=== PATIENT | female | born 1955 | race Caucasian/White ===

== ENCOUNTER → 2017-01-13 | Outpatient (CLI) | payer BC ==
[2017-01-13 13:25] LABS: URINE APPEARANCE CLEAR (CLEAR); URINE BILIRUBIN NEG (NEG); URINE COLOR YELLOW; URINE NITRITE NEG (NEG); URINE SPECIFIC GRAVITY 1.006 (1.000-1.030); UROBILINOGEN NEG (NEG)
[2017-01-13 13:28] LABS: BASO % 1.1 %; BASO ABS # 0.06 K/uL (0-0.2); COMPLETE YES; EOS % 1.6 %; IG% 0.2 %; LYMPH % 35.3 %; LYMPH ABS # 1.95 K/uL (1.2-3.4); MEAN CELL VOLUME 94.5 fL (80-100); MEAN CORPUSCULAR HEMOGLOBIN 31.9 pg (25-34); MEAN CORPUSCULAR HGB CONC 33.8 g/dl (32-36); MEAN PLATELET VOLUME 9.8 fL (7.4-10.4); MONO % 10.7 %; NEUT % 51.1 %; PLATELET COUNT 307 K/uL (130-400); RED BLOOD COUNT 4.76 M/uL (4.2-5.4); WHITE BLOOD COUNT 5.53 K/uL (4.8-10.8)
[2017-01-13 13:34] LABS: MANUAL MICROSCOPIC REQUIRED? NO; REVIEW REQ? NO
[2017-01-13 13:54] LABS: ESTIMATED AVERAGE GLUCOSE 97 mg/dl; HA1C FLAG Normal (Normal)
[2017-01-13 14:23] LABS: ALKALINE PHOSPHATASE 71 U/L (45-117); ALT/SGPT 22 U/L (12-78); AST/SGOT 16 U/L (15-37); BLOOD UREA NITROGEN 14 mg/dl (7-18); BUN/CREATININE RATIO 17.5 (10-20); CALCIUM 8.9 mg/dl (8.5-10.1); CARBON DIOXIDE 25 mmol/L (21-32); CHLORIDE 106 mmol/L (98-107); CREATININE 0.82 mg/dl (0.60-1.20); GLUCOSE 85 mg/dl (70-99); HDL CHOLESTEROL 83 mg/dl; POTASSIUM 4.3 mmol/L (3.5-5.1); SODIUM 140 mmol/L (136-145)
[2017-01-13 14:24] LABS: CHOLESTEROL 214 mg/dl (0-200); CHOLESTEROL/HDL RATIO 2.6; LDL CHOLESTEROL CALCULATED 116 mg/dl; MAGNESIUM 2.1 mg/dl (1.8-2.4); PHOSPHORUS 2.4 mg/dl (2.5-4.9); TRIGLYCERIDES 74 mg/dl (0-150); VERY LOW DENSITY LIPOPROT CALC 15 mg/dl
--- NOTE | 2017-01-19 09:44 | CODING QUERY MEDICAL NECESSITY ---
SUPPORTING DIAGNOSIS NEEDED Dr. Mercado, A supporting diagnosis is required for the test/procedure performed on this patient in order for us to be reimbursed by the patient's insurance. Please provide a supporting diagnosis for the following test/procedure listed below next to the test name along with your signature. *If there is no additional diagnosis for this patient that would support the following test/procedure please document that below next to the test/procedure. Test(s)/Procedure(s) that require a supporting diagnosis: * 27782 GLYCATED HEMOGLOBIN DIAGNOSIS: DATE OF SERVICE: 01/13/17 Provider Signature: Date: Thank you [facility] Information Management Once completed, please kindly fax back to [phone] For questions please call [phone]
== END | disposition home or self-care (01) ==
LOC: C.LABMFLN 12:23
DX: E78.00 Pure hypercholesterolemia, unspecified (principal); K21.9 Gastro-esophageal reflux disease without esophagitis; Z85.3 Personal history of malignant neoplasm of breast; R63.4 Abnormal weight loss; Z13.1 Encounter for screening for diabetes mellitus

== ENCOUNTER → 2017-11-30 | Outpatient (CLI) | payer BC ==
[2017-11-30 13:11] LABS: BASO ABS # 0.06 K/uL (0-0.2); EOS ABS # 0.12 K/uL (0-0.5); HEMOGLOBIN 14.4 g/dL (12.0-16.0); IG# 0.01 K/uL (0.00-0.02); LYMPH % 31.4 %; LYMPH ABS # 1.85 K/uL (1.2-3.4); MEAN CELL VOLUME 95.1 fL (80-100); MEAN CORPUSCULAR HEMOGLOBIN 31.9 pg (25-34); MEAN CORPUSCULAR HGB CONC 33.5 g/dl (32-36); MONO % 13.1 %; MONO ABS # 0.77 K/uL (0.11-0.59); NEUT % 52.3 %; NEUT ABS # 3.09 K/uL (1.4-6.5); PLATELET COUNT 325 K/uL (130-400); RED CELL DISTRIBUTION WIDTH CV 13.6 % (11.5-14.5); RED CELL DISTRIBUTION WIDTH SD 47.1 fL (36.4-46.3)
[2017-11-30 13:45] LABS: ALBUMIN 3.4 gm/dl (3.4-5.0); ALT/SGPT 25 U/L (12-78); AST/SGOT 21 U/L (15-37); BLOOD UREA NITROGEN 16 mg/dl (7-18); CALCIUM 8.8 mg/dl (8.5-10.1); CARBON DIOXIDE 24 mmol/L (21-32); CHOLESTEROL 231 mg/dl (0-200); CREATININE 0.81 mg/dl (0.60-1.20); GLUCOSE 93 mg/dl (70-99); POTASSIUM 4.2 mmol/L (3.5-5.1); SODIUM 136 mmol/L (136-145)
[2017-11-30 13:53] LABS: ALKALINE PHOSPHATASE 66 U/L (45-117); LDL CHOLESTEROL CALCULATED 137 mg/dl; TOTAL PROTEIN 6.9 gm/dl (6.4-8.2)
== END | disposition home or self-care (01) ==
LOC: C.LABMFLN 08:18
DX: Z85.3 Personal history of malignant neoplasm of breast (principal); K21.9 Gastro-esophageal reflux disease without esophagitis

== ENCOUNTER 2021-09-16 08:28 | Observation (INO) ==
--- NOTE | 2021-09-08 13:54 | PAT Medication Instructions ---
Medication Instructions Date of Service September 08, 2021 Home Medications Medication Instructions Recorded cyclobenzaprine 10 mg tablet 10 mg PO HS PRN #30 tab 05/05/19 Right BKA prosthetic supplies plus #1 ea 01/10/20 socks and liners esomeprazole magnesium 40 mg 40 mg PO DAILY #90 cap 11/25/20 capsule,delayed release cyclobenzaprine 10 mg tablet 10 mg PO HS PRN Right BKA prosthetic supplies plus socks and liners esomeprazole magnesium 40 mg capsule,delayed release 40 mg PO DAILY aspirin 500 mg tablet 1,000 mg PO Q8H PRN Take morning of surgery With a small sip of water, OTHERWISE NOTHING TO EAT OR DRINK AFTER MIDNIGHT: esomeprazole magnesium 40 mg capsule,delayed release 40 mg PO DAILY aspirin 500 mg tablet 1,000 mg PO Q8H PRN(if needed) Take evening before surgery cyclobenzaprine 10 mg tablet 10 mg PO HS PRN(if needed) aspirin 500 mg tablet 1,000 mg PO Q8H PRN(if needed) Other Notes If you have any questions please call us at [phone] or [phone] or [phone] or [phone]
--- NOTE | 2021-09-09 11:46 | Anesthesiology Consultation ---
Date of Service September 09, 2021 Assessment & Plan (1) Encounter for pre-operative examination: - H/o left upper extremity limb restriction per pt-she states has had multiple IVs, lab draws on LUE without issue, was necessary with previous R shoulder surgery. - COVID screening: Per assessment on 09/09/2021: Travel screen negative, no known COVID-19 positive contacts or current COVID-19 related symptoms in past 2 weeks. Patient vaccinated. Surgeon arranging preop COVID testing, scheduled 09/14/2021 FELICITAS Cronin. Awaiting results. Chart Review Chart Review: Acceptable Risk for Surgery and Patient seen in Pre Admission Test ing Teaching & Discussion Pre-Anesthesia Teaching/Discussion Notes: Instructed NPO after midnight before surgery, except medications with 15 cc of water. Medication instructions provided according to the PAT guidelines. History Surgery Operation Date: 09/16/21 07:15 Proposed Procedures p Right Humerus Hardware Removal and Reverse Total Shoulder Arthroplasty - Uday Hugo MD Height/Weight Height: 5 ft 4 in Weight: 82.8 kg Allergies Allergy/AdvReac Type Severity Reaction Status Date / Time No Known Drug Allergies Allergy Verified 09/07/21 15:10 Medications Home Medications Medication Instructions Recorded Confirmed Last Taken cyclobenzaprine 10 mg tablet 10 mg PO HS PRN #30 tab 05/05/19 09/07/21 Unknown Right BKA prosthetic supplies plus #1 ea 01/10/20 11/25/20 Unknown socks and liners esomeprazole magnesium 40 mg 40 mg PO DAILY #90 cap 11/25/20 09/07/21 Unknown capsule,delayed release aspirin 500 mg tablet 1,000 mg PO Q8H PRN 09/07/21 09/07/21 Unknown Past Medical History Medical History (Updated 09/10/21 @ 08:31 by Misa Martin PA-C) Acid reflux controlled, stable per pt Adenomatous colon polyp Arthritis 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 Exercise / Class Metabolic Activity II 4-5 Yardwork/Stairs/Walk up hill (denies CP or SOB with 1 FOS) Past Family History Family History Mother Pancreatic cancer Anxiety Depression Cardiac disorder Gallbladder disease Sister Anxiety Bipolar disorder Depression Cardiac disorder Father Prostate cancer Cardiac disorder Kidney disease Cancer Son Cancer Brother Malignant neoplasm of testis Cancer Grandfather Myocardial infarction Uncle Myocardial infarction Grandfather (Maternal) Family history of diabetes mellitus Other No family history of adverse response to anesthesia Past Surgical History Surgical History (Updated 09/09/21 @ 11:41 by Misa Martin PA-C) Gastric bypass status for obesity > 20 yrs ago H/O section X 2 H/O colonoscopy 03/19/2018 repeat 5 yrs H/O sinus surgery X 2 H/O splenectomy History of cholecystectomy History of esophagogastroduodenoscopy (EGD) History of open reduction and internal fixation (ORIF) procedure RT SHOULDER History of tonsillectomy and adenoidectomy History of tooth extraction Nausea and vomiting after administration of anesthetic agent S/P BKA (below knee amputation) S/P ACCIDENT S/P breast lumpectomy LEFT and lymph node excision Past Anesthesia History No Hx of Anesthesia Complications and No Family Hx of Anesthesia Complications History of PONV No Hx of Motion Sickness and History of PONV Social History Smoking Status: Former smoker tobacco type: cigarettes Do You Dip or Chew Tobacco: No Smoking End Date: 40 YEARS AGO Hx Alcohol Use: Yes Alcohol type: wine alcohol intake frequency: a few times a month Hx Substance Use: No Review of Systems Patient denies chest pain, shortness of breath, dyspnea on exertion, snoring, witnessed apneas, fever, chills, cough, wheezing, or palpitations. Physical Exam Vital Signs Vitals BP 120/77 P 53 TEMP 97.8 SP02 96% on RA RESP 17 Physical Full cervical extension range of motion without pain Full TMJ range of motion TMD 3.5 finger breaths Mallampati Score 2 Dentition: intact, missing bilat upper side teeth, cap left front upper, implant right lower side; denies loose or chipped teeth or bridges Lungs: normal respiratory effort. Clear throughout to auscultation, no adventitious breath sounds Cardiac: regular rate and rhythm, no murmurs noted Carotid arteries: negative bruit bilat Extremities: no distal extremity edema Lab Results Anesthesia Preop Results Results Anesthesia Widget: WBC 6.46 K/uL (4.8-10.8) 09/09/21 Hgb 15.1 g/dL (12.0-16.0) 09/09/21 Hct 46.3 % (37-47) 09/09/21 Plt 328 K/uL (130-400) 09/09/21 Na 137 mmol/L (136-145) 09/09/21 K 4.7 mmol/L (3.5-5.1) 09/09/21 Cl 104 mmol/L (98-107) 09/09/21 CO2 28 mmol/L (21-32) 09/09/21 BUN 17 mg/dl (6-23) 09/09/21 Creat 0.86 mg/dl (0.6-1.2) 09/09/21 Glucose Level 107 mg/dl (70-99) H 09/09/21 PT 10.2 Seconds (9.0-12.0) 09/09/21 PTT 26.1 Seconds (21.0-31.0) 09/09/21 INR 1.0 (0.9-1.1) 09/09/21 Blood Type B Positive 09/09/21 Antibody Screen NEGATIVE 09/09/21 Testing Electrocardiogram Date: 09/09/21 Sinus bradycardia, rate 55 bpm. Low voltage QRS. Other Testing Chest CT 08/11/2021 FINDINGS: Lungs and pleura: Scarring is seen in the left upper lobe. Multiple pulmonary nodules are unchanged from prior exam, largest includin mm nodule in the right upper lobe (series 4 image 91) 5 mm pleural-based nodule in the right lower lobe (image 138) 5 mm nodule in the right lower lobe (image 155) 6 mm pleural-based nodule in the left lower lobe (image 187) 10 mm pleural-based nodule in the right lower lobe (image 190) Heart and pericardium: Cardiomegaly is seen with biatrial enlargement. Vessels: Moderate atherosclerotic changes in the aorta and coronary arteries. Mediastinum and anette: Unremarkable. Chest wall and lower neck: Axillary clips are seen on the left. Subcentimeter nodes are seen in the right axilla. Abdomen: Patient is status post gastric surgery. A hiatal hernia is seen. A status post cholecystectomy. Surgical clips are seen about the spleen. Bones: Unremarkable. IMPRESSION: Interval stability of multiple pulmonary nodules as seen on prior CT. The largest measures 1.0 cm. According to Fleischner criteria, 3 month follow-up CT can be performed.
[~2021-09-16 08:28] MED LIST: ACETAMINOPHEN 500 MG TAB PO SCH; BUPIVACAINE 0.5 % 5 MG/1 ML PF 10ML VIAL ONE; LR 15ML/HR IV SCH; LR 60ML/HR IV SCH; dexAMETHasone 4 MG TAB PO SCH
[2021-09-16] MEDS ORDERED: MIDAZOLAM HCL 1 MG/ML 2ML VIAL ONE (09:20)
[2021-09-16] MEDS ORDERED: fentaNYL citrate 100 MCG/2 ML VIAL ONE ×2 (09:20→13:08)
[2021-09-16] MEDS ORDERED: ONDANSETRON INJ 2 MG/ML 2 ML VIAL IV PRN ×2 (09:37→15:27)
[2021-09-16] MEDS ORDERED: ePHEDrine sulfate 50 MG/ML AMP IV PRN (09:37)
[2021-09-16] MEDS ORDERED: ATROPINE SULFATE 0.1 MG/ML 10ML SYR IV PRN (09:37)
[2021-09-16] MEDS ORDERED: fentaNYL citrate 100 MCG/2 ML VIAL IV PRN (09:37)
[2021-09-16] MEDS ORDERED: ceFAZolin 2,000 MG/15 ML IV PUSH IV ONE (09:56)
[2021-09-16] MEDS ORDERED: ceFAZolin 2000MG 2,000 MG/15 ML SYR IV ONE (09:58)
--- NOTE | 2021-09-16 09:59 | History & Physical Bridge Note ---
Date of Service September 16, 2021 History & Physical Bridge Note I have examined the patient, reviewed the History & Physical and in the interval since the performance of the History & Physical I have noted the following changes of clinical significance: no changes noted. Patient is aware of COVID-19 risks. Patient is asymptomatic for COVID-19. Patient has been tested for COVID-19 - [NEGATIVE].
[2021-09-16] MEDS ORDERED: GLYCOPYRROLATE 0.2 MG/ML VIAL ONE (11:07)
[2021-09-16] MEDS ORDERED: DEXAMETHASONE SOD INJ 4 MG/ML VIAL ONE (11:28)
[2021-09-16] MEDS ORDERED: LIDOCAINE 2% 2 ML VIAL/AMP(20MG/ML) INFIL ONE (11:28)
[2021-09-16] MEDS ORDERED: PROPOFOL IV EMULSION 10 MG/ML 20 ML VIAL IV ONE (11:28)
[2021-09-16] MEDS ORDERED: ONDANSETRON INJ 2 MG/ML 2 ML VIAL ONE (11:28)
--- NOTE | 2021-09-16 12:16 | Fluoroscopy Report ---
FL humerus RT 2V CLINICAL HISTORY: RT HUMERUS HW REMOVAL COMPARISON STUDY: CT of the right humerus July 28, 2021. FLUOROSCOPY TIME: 20 seconds. FLUOROSCOPIC IMAGES: 1 FINDINGS: Fluoroscopy was provided during removal of the intramedullary jono within the right humerus. Jono and distal screw are partially imaged on this image. IMPRESSION: Fluoroscopy provided during removal of the surgical hardware within the right humerus. ACT 112: Negative or not required by law. Electronically signed by: Dmitriy Cornejo M.D. 09/16/2021 12:15 PM
--- NOTE | 2021-09-16 14:26 | Post Operative Brief Note ---
PG Immediate Post Op with CF Date of Surgery September 16, 2021 Pre & Post Diagnosis Operation Date: 09/16/21 10:05 Pre-Op Diagnosis: Rotator Cuff Arthropathy of Right Shoulder Post-Op Diagnosis: Rotator Cuff Arthropathy of Right Shoulder I identified the patient and participated in the time-out.: Yes Procedure Operation Date: 09/16/21 10:05 Actual Procedures p Right Humerus Hardware Removal and Reverse Total Shoulder Arthroplasty(Right) - Uday Hugo MD Surgeon Uday Hugo MD Maintenance Director Miguel Angel Caceres PA-C Estimated Blood Loss 100 Findings See Below Specimens Specimen Description: Permanent Specimen A: Right Humeral Head
--- NOTE | 2021-09-16 14:47 | Anesthesiology Progress Note ---
Date of Service September 16, 2021 Anesthesia Post Procedure Vital Signs Vital Signs: Temp Pulse Pulse Resp BP BP Pulse Ox 09/16/21 14:30 36.0 C L 59 L 13 100/63 97 09/16/21 08:59 36.8 C 65 20 139/77 96 Pain Intensity Right Shoulder: Pain Intensity: 3 Transfer of Care Handoff Completed per policy Notes Mental Status: alert / awake / arousable Patient Amnestic to Procedure: Yes Nausea / Vomiting: adequately controlled Pain: adequately controlled Airway Patency, RR, SpO2: stable & adequate BP & HR: stable & adequate Hydration State: stable & adequate Anesthetic Complications: no major complications apparent
--- NOTE | 2021-09-16 14:52 | XRay Report ---
RIGHT SHOULDER 2 VIEWS HISTORY: Post shoulder surgery COMPARISON: Right shoulder 02/02/2007. FINDINGS: Status post reverse right total shoulder arthroplasty. Hardware appears intact. No acute fr acture or dislocation. There is normal, healed fracture deformity within the proximal humerus. IMPRESSION: Status post reverse right total shoulder arthroplasty. No evidence for hardware complication. ACT 112: Negative or not required by law. Electronically signed by: Cosme Welsh M.D. 09/16/2021 2:50 PM
--- NOTE | 2021-09-16 15:11 | Operative Report ---
PG Post Operative Report Pre & Post Diagnosis Operation Date: 09/16/21 10:05 Pre-Op Diagnosis: Rotator Cuff Arthropathy of Right Shoulder Post-Op Diagnosis: Rotator Cuff Arthropathy of Right Shoulder, Biceps tendonitis I identified the patient and participated in the time-out.: Yes Procedure Operation Date: 09/16/21 10:05 Actual Procedures p Right Humerus Hardware Removal, Open Biceps Tenodesis, and Reverse Total Shoulder Arthroplasty(Right) - Uday Hugo MD CPT code modifier 59: The biceps tendon was inflamed and enlarged consistent with biceps tendon pathology. A tenodesis was opted. This was a separate and distinct portion of the procedure. For these reasons, a CPT code modifier 59 will be added to this case. Surgeon Uday Hugo MD [employer] Miguel Angel Caceres PA-C Estimated Blood Loss 100 Findings See Below The proximal humeral locking nail was removed without complication. [employer] comprehensive reverse shoulder arthroplasty was performed: Stem17 mm micro, baseplatemedium augmented superior, glenosphere[36 mm standard], humeral tray [40 mm standard +0 offset], poly [36 mm standard], central screw 6.5 mm x [35] mm, all locking peripheral screws 4.75 x [15]mm, 4.75 x [15]mm, 4.75 x [40] mm, and 4.75 x [35] mm EXAMINATION UNDER ANESTHESIA: Preoperative exam under anesthesia revealed the following: [120] degrees of forward flexion, [60] degrees external rotation at the side, [120] degrees of abduction which released with gentle manipulation to approximately [140], [60] degrees of external rotation and [10] degrees of internal rotation with the arm abducted. Postoperatively, range of motion parameters after implantation of prosthesis revealed a stable prosthesis with range of motion parameters as follows: [130] of forward flexion, [60] of external rotation at the side, [90] of abduction, [90] of external rotation with the arm abducted, [20] of internal rotation with the arm abducted. The patient's safe range of motion included the ability to get to the back of her head. Internal rotation to the belly without significant tension. 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 She presented with rotator cuff-like symptoms. Physical exam and advanced imaging were consistent with rotator cuff arthropathy with retraction and atrophy of the supraspinatus. We discussed treatment options including joint preservation with complicated rotator cuff repair and potential augmentation. Given her age and comorbid lower extremity amputation, she preferred a more reliable surgical intervention. I offered elective reverse total shoulder arthroplasty to address the rotator cuff arthropathy. We discussed the risks and benefits in detail, as outlined in the preoperative note. Informed consent was obtained in clinic. Description of Procedure The patient was identified in the preoperative holding area. The operative extremity was marked. Regional block was administered by Anesthesia. The patient was then brought to the operating room and placed supine. Preliminary time-out procedure was performed. All were in agreement. General endotracheal anesthesia was induced without any issues. The patient was sat up in around 40-45 degrees of inclination in the beachchair position. Exam under anesthesia was performed confirming the above findings. Preoperative antibiotics were administered. Sequential compressive devices were placed on her bilateral lower extremities for DVT prophylaxis. Bony prominences were inspected, well-padded and free of any evidence for peripheral nerve compression. The operative upper extremity was then prepped and draped in a normal standard fashion, with use of the Arthrex Trimano arm positioner. Prior to incision, a second time-out procedure was performed confirming the patient, site, laterality and the procedure. All were in agreement. 1. Right proximal humerus nail removal: Fluoroscopy was brought in to identify the location of the distal interlocking screws. The [employer] rep was present and confirmed these are likely 4.5 screws. Screwdriver was then used to locate the screws and a small incision was made. Blunt dissection was carried out using a hemostat down to bone to protect the nearby neurovascular structures. Screwdriver slid down this tissue sleeve, and fluoroscopy was used to direct the log driver onto the screw head. The more proximal screw was removed first. A similar technique was used for the more distal screw through a separate incision. The sites were then thoroughly irrigated. A deltopectoral incision was utilized. Incision was carried out sharply and with electrocautery through the skin and subcutaneous tissues. The deltopectoral interval was developed. The cephalic vein was taken laterally. Subdeltoid space was developed bluntly. A deltoid brown retractor was placed to retract the deltoid laterally and superiorly. 1 cm of the superior border of the pectoralis major tendon insertion site was released in standard fashion to improve exposure. Clavipectoral fascia was removed with electrocautery. Extensive subacromial bursitis was encountered and this was completely removed with a Bovie. The lateral aspect of the conjoined tendon was then followed to its insertion site on the coracoid. The conjoined tendon was retracted medially. The biceps tendon was identified, enlarged consistent with tendinopathy. It was released from the sheath using a Bovie and followed up into the rotator interval. A tenodesis was performed to the pectoralis major tendon as will be discussed in further detail below. A sharp Hohmann retractor was then placed into the interval and into the joint. Subscapularis tendon was still present and attached on the lesser tuberosity. The articular surface of the humeral head could be appreciated. The subscapularis tendon was then tagged with two #5 Ti-Cron sutures to gain control. The capsule with the subscapularis tendon was then released up the inferior humeral neck as one layer. The humeral head dislocated with successive extension and external rotation. Were able to visualize the rotator cuff insertion there was a large retracted tear of the supraspinatus exposing the footprint. Soft tissues debridement carried out using electrocautery and a rongeur. There was some soft tissue covering of the proximal end of the nail which was easily identified at the appropriate start point. We then exposed the lateral humerus which revealed the blade and proximal interlock screw. The interlock screw was removed easily. The derotation screw at the top the nail was then loosened and removed. The blade was then backed out using its removal device by Zytoprotec. The nail extraction device was then attached proximally and the nail was back slapped out without complication. The canal was then thoroughly irrigated with pulse lavage for 2 L. 1. Right shoulder open reverse total shoulder replacement with augmented glenoid baseplate with patient specific guide: Visualization of the humeral head revealed mild osteoarthritis and wear in the superior quadrant. The supraspinatus was absent and retracted to about the level of the glenoid. The posterior aspect of the infraspinatus remained attached as well as the teres minor. The top of the humeral head was identified. A starting awl was used sound the humeral canal. The bone quality was moderate. We opted to set the retroversion of the humeral cut at around 30 degrees of retroversion her te-moak retroversion. Successive reamers were used to sound the cortex. We started at 6 and quickly advanced to 16 mm until good cortical chatter was experienced. The cutting guide was attached to the 16mm reamer handle. Pins were placed to hold the cutting guide and the stock handler was removed. The humeral head resection was then made in parallel fashion to the guide. Sequential broaching was carried out up to a size 16 as the maximal stem size, which gave us excellent press-fit. The trial stem was left in place. Humerus cover was then placed onto the trial broach. We then proceeded over to glenoid. An anterior glenoid neck retractor was placed. The MGHL and SGHL were released off of the muscular portion of the subscapularis being mindful of palpating and identifying the axillary nerve to make sure it was free of injury during releases. Next, the interval between the IGHL and the muscular portions of the subscapularis was identified. My finger was on the axillary nerve to protect it during releases. The IGHL was then released up to around the 7 o'clock position. A bunny ear style blunt retractor was then placed to retract the humerus posteriorly. A sharp Hohmann retractor was placed at the 12 o'clock position. The glenoid deformity was evaluated with assistance with the bone model. Extraneous capsulolabral tissue was dissected to reveal the bone anatomy. This confirmed our decision to proceed with preoperative virtual planning. The arm was placed around 30 degrees of flexion, 90 degrees of external rotation and 30 degrees of abduction to distract the humerus posteriorly. Labrum was circumferentially removed including the biceps tendon stump with a Bovie. A patient specific guide was used to place an initial guide pin, followed by the more superior pin. The patient specific guide was then removed. The custom reamer guide was placed on the superior pin and the reamer was brought down the central pin. Reaming was conducted based on the guide. Irrigation was used and we confirmed adequate reaming. The base protector was then fastened with a screw to protect the surface from the augment reamer. The augment reamer sufficiently removed the cartilage surface. Copious irrigation was performed to irrigate out the joint. A 25 mm medium au gmented baseplate, with wedge placed superior and a 35 mm threaded screw was then placed. For peripheral locking screws were placed. The final construct appeared to be extremely strong as the entire glenoid and scapula moved together as one unit confirming excellent fixation of the baseplate. Next, a 36 mm inferior offset set at position B trial glenosphere was chosen given our preop plan. On inspection, there appeared to be enough room for more offset, so the trial was set to the position and the position D. Trial had good coverage, so the final implant was selected. The glenosphere was then seated into the baseplate and impacted onto the hernandez taper. A ford was used to test fixation, before resetting with additional malletting. The joint was then copiously irrigated. Humerus was then brought back into view with external rotation, deltoid brown retractor and multiple blunt Homans. A trial tray was then placed that would best accommodate the anatomy. The humerus was then reduced onto the glenoid with the arm in abduction and external rotation. The arm was taken out of the dunaway, taken through a physiologic range of motion. No evidence for impingement. No evidence for kick off. No shuck. Thus, the trials would be a most appropriate for stability. Next, the trial humeral component was removed. The final stem prosthesis was then brought onto the field. Final tray insert as well as the poly components were opened. Using the trial component, the final humeral component with the tray and poly were made on the back table, matching the trial implant. Humeral canal was copiously irrigated. Two 2.0 mm drill holes were then placed in the bicipital groove just lateral to the lesser tuberosity. Two #5 Ti-Con sutures were placed through these holes and clamped aside for later subscapularis repair. The final humeral component was then brought back on to the field and seated firmly into the humerus. Excellent press-fit was achieved. Thus, this comple thang the humeral component implantation. With the final components in place, humeral component was then reduced onto the glenosphere and final postoperative range of motion assessment was performed. Stability confirmed. The subscapularis was then repaired to the humerus using a Artie-Drew configuration. This completed the open reverse total shoulder replacement. 2. Open biceps tenodesis: As dictated above, enlargement of the biceps tendon was noted consistent with tendinopathy. A tenodesis was opted. The tendon was released from the bicipital sheath using a Bovie and then tenodesed to the pectoralis major tendon using a #2 Ethibond suture in [id number] fashion. The tendon was then followed up as proximal as could be visualized and then tenotomized. Remaining stump was removed just proximal to the tenodesis site. This completed the open biceps tenodesis. The wound was copiously irrigated. The deltopectoral incision was closed with continuous #1 Vicryl suture. Deep adipous subcutaneous tissues were closed with 2-0 Vicryl suture in buried interrupted fashion and skin closed with interrupted buried knot 3-0 Monocryl dermal stitches, followed by a running 4-0 Monocryl suture. Closure was reinforced with Steri-Strips. Dressing consisting of Xeroform, plain gauze, ABD and Ioban was placed. The distal lock screw incisions were closed with interrupted buried 3-0 Monocryl suture, back to be Steri-Strips and dressed with Xeroform plain gauze and contained by Ioban. The patient was placed in a standard sling and turned over to the anesthesia team. The patient tolerated procedure well, was extubated in the operating without complication, and transferred to the PACU in stable condition. DISPOSITION: The patient will remain in sling for a total of 6 weeks. Hand, wrist, and elbow range of motion exercises may be initiated. After 6 weeks, the sling will be discontinued. Formal therapy will be initiated starting with gentle passive range of motion and active range of motion. No strengthening will be permitted before 12 weeks. When strengthening is allowed, only gentle strengthening will be allowed. Physician campaign assistant attestation: [Miguel Angel Mehta PA-C was present and scrubbed for the duration of the case. He was essential to prepping/draping, patient positioning, retraction, and assistance with wound closure. I attest to the content of the Intraoperative Record and any orders documented therein. Any exceptions are noted below.
[2021-09-16] MEDS ORDERED: METOCLOPRAMIDE HCL INJ 5 MG/ML 2 ML VIAL IV PRN (15:27)
[2021-09-16] MEDS ORDERED: bisacodyL 10 MG SUPP PR PRN (15:27)
[2021-09-16] MEDS ORDERED: CYCLOBENZAPRINE HCL 10 MG TAB PO PRN (15:27)
[2021-09-16] MEDS ORDERED: NALOXONE HCL 0.4 MG/1 ML VIAL/CARP IV PRN (15:27)
[2021-09-16] MEDS ORDERED: MAGNESIUM HYDROXIDE SUSP 30 ML UDC PO PRN (15:27)
[2021-09-16] MEDS: SODIUM CHLORIDE 0.9% 1000ML 1,000 ML IV SCH (17:06)
[2021-09-16] MEDS: ceFAZolin 2000MG 2,000 MG/15 ML SYR IV SCH (20:03)
[2021-09-16] MEDS: DOCUSATE SODIUM 100 MG CAP PO SCH (20:04)
[2021-09-16] MEDS: SENNA 8.6 MG TAB PO SCH (20:04)
[2021-09-16] MEDS: ACETAMINOPHEN 500 MG TAB PO SCH (22:03)
[2021-09-17] MEDS: ceFAZolin 2000MG 2,000 MG/15 ML SYR IV SCH (02:51)
[2021-09-17] MEDS: ACETAMINOPHEN 500 MG TAB PO SCH ×3 (05:43→21:32)
[2021-09-17 06:58] LABS: Basophils # (auto) 0.01 K/uL (0-0.2); Basophils % (auto) 0.2 %; Hematocrit (blood only) 35.6 % (37-47); Hemoglobin 11.8 g/dL (12.0-16.0); Immature Granulocytes # (auto) 0.01 K/uL (0.00-0.02); Immature Granulocytes % (auto) 0.2 %; Lymphocytes # (auto) 1.54 K/uL (1.2-3.4); Lymphocytes % (auto) 23.8 %; Mean Corpuscular Hemoglobin 31.4 pg (25-34); Mean Corpuscular Hgb Conc 33.1 g/dL (32-36); Mean Corpuscular Volume 94.7 fL (80-100); Mean Platelet Volume 9.5 fL (7.4-10.4); Monocytes # (auto) 1.03 K/uL (0.11-0.59); Monocytes % (auto) 15.9 %; Neutrophils # (auto) 3.88 K/uL (1.4-6.5); Neutrophils % (auto) 59.9 %; Platelet Count 256 K/uL (130-400); RDW Coefficient of Variation 13.2 % (11.5-14.5); RDW Standard Deviation 45.5 fL (36.4-46.3); Red Blood Count 3.76 M/uL (4.2-5.4); White Blood Count 6.47 K/uL (4.8-10.8)
[2021-09-17 07:28] LABS: BUN Creatinine Ratio 16.9 (10-20); Calcium 8.1 mg/dl (8.5-10.1); Est GFR (African American) 101.4 ml/min; Est GFR (Non-African American) 87.5 ml/min; Potassium 4.1 mmol/L (3.5-5.1)
[2021-09-17] MEDS: ASPIRIN 325 MG ECTAB PO SCH (07:56)
[2021-09-17] MEDS: MULTIVITAMIN TAB PO SCH (07:56)
--- NOTE | 2021-09-17 13:00 | Orthopedic Progress Note ---
Date of Service September 17, 2021 Assessment & Plan (1) Rotator cuff arthropathy of right shoulder: (2) S/P shoulder surgery: 66-year-old female making uncomplicated progress on postop day 1 after right shoulder hardware removal and reverse total shoulder arthroplasty for rotator cuff arthropathy. Remains inpatient due to ambulatory dysfunction given that she is a right lower extremity amputee and her right arm is nonweightbearing and should be rested in the sling. -Monitor pain as the block effects wear off -PT/OT consults for mobilization and assessment of needs for ADLs: Nonweightbearing RUE, gentle passive glenohumeral motion okay with no external rotation past neutral. No restrictions to hand/wrist, elbow range of motion. -Appreciate case management assistance or next level of care -Leave dressing in place until postop day 3 Dispo: Upon completion of PT/OT evaluations for discharge needs. Subjective Reports no significant pain because the block is still working. Nursing was in the room at the time of evaluation, and they both reported that she had some difficulty trying to get to the restroom. Still feels slightly dizzy when she is upright. Otherwise no issues. Review of Systems All systems reviewed & are unremarkable except as noted in HPI & below. Physical Exam Right shoulder: Dressing is intact, clean and dry. Sling is well fit and she is position comfortably. Positive thumb extension and index finger extension, positive finger flexion, positive hand intrinsics. Sensation grossly diminished to light touch throughout as expected due to the block. Constitutional WD/WN, vitals as above no acute distress and not intoxicated appearing Respiratory normal respiratory effort; no labored breathing Cardiovascular Extremities: normal capillary refill Results & Data Results & Data Laboratory Results . Diagnostic Findings Postop radiographs demonstrates no implant complications. Suboptimal AP view but will be repeated in clinic. PG Care Time/CCT Total # of Minutes Spent Total Time Spent with Patient: Total time spent is greater than 50% in coordination of care (as documented) at patient's floor/unit and/or counseling patient: Coding Level of Care Code 00761 Post Operative Follow-Up Diagnoses Rotator cuff arthropathy of right shoulder M12.811 S/P shoulder surgery Z98.890
[2021-09-17] MEDS: DOCUSATE SODIUM 100 MG CAP PO SCH ×2 (13:28→20:02)
[2021-09-17] MEDS: ALUMINUM/MAGNESIUM/SIMETH (MAALOX MAX) 30 ML UDC PO PRN ×2 (13:29→21:32)
[2021-09-17] MEDS: HYDROmorphone INJ 0.5 MG/0.5 ML SYR IV PRN (14:50)
[2021-09-17] MEDS: PANTOprazole 40 MG TAB PO SCH (17:31)
[2021-09-17] MEDS: SODIUM CHLORIDE 0.9% 1000ML 1,000 ML IV SCH (19:08)
[2021-09-17] MEDS: SENNA 8.6 MG TAB PO SCH (20:02)
[2021-09-18] MEDS: ACETAMINOPHEN 500 MG TAB PO SCH ×3 (05:29→20:44)
[2021-09-18] MEDS: ALUMINUM/MAGNESIUM/SIMETH (MAALOX MAX) 30 ML UDC PO PRN ×2 (08:00→14:08)
[2021-09-18] MEDS: oxyCODONE HCL IR 5 MG TAB (IMMEDIATE RELEASE) PO PRN ×2 (08:01→14:08)
[2021-09-18] MEDS: MULTIVITAMIN TAB PO SCH (08:03)
[2021-09-18] MEDS: ASPIRIN 325 MG ECTAB PO SCH (08:03)
[2021-09-18] MEDS: DOCUSATE SODIUM 100 MG CAP PO SCH ×2 (08:04→20:43)
--- NOTE | 2021-09-18 08:10 | Orthopedic Progress Note ---
Date of Service September 18, 2021 Assessment & Plan (1) Rotator cuff arthropathy of right shoulder: (2) S/P shoulder surgery: 66-year-old female making uncomplicated progress on postop day 2 after right shoulder hardware removal and reverse total shoulder arthroplasty for rotator cuff arthropathy. Remains inpatient due to ambulatory dysfunction given that she is a right lower extremity amputee and her right arm is nonweightbearing and should be rested in the sling. -PT/OT consults for mobilization and assessment of needs for ADLs: Nonweightbearing RUE, gentle passive glenohumeral motion okay with no external rotation past neutral. No restrictions to hand/wrist, elbow range of motion. -Appreciate case management assistance or next level of care -Leave dressing in place until postop day 3 Dispo: bed availablility at next level of care. Subjective Feeling increased pain today now the block effects of completely worn off. Sensation in hand "feels different." No other complaints. Review of Systems All systems reviewed & are unremarkable except as noted in HPI & below. Physical Exam Pleasant and conversational. Splint is well fitted and in place. RUE: Dressing is clean dry and intact. There is drainage from the lower interlock screw incisions but is stable. Leave in place today. Displays full motor to finger extension flexion thumb flexion extension and hand intrinsics. Sensation in the axillary nerve distribution is intact and she can fire deltoid with resisted abduction. Constitutional WD/WN, vitals as above no acute distress and not intoxicated appearing Respiratory normal respiratory effort; no labored breathing Cardiovascular Extremities: normal capillary refill Results & Data Results & Data Laboratory Results . Diagnostic Findings . PG Care Time/CCT Total # of Minutes Spent Total Time Spent with Patient: Total time spent is greater than 50% in coordination of care (as documented) at patient's floor/unit and/or counseling patient: Coding Level of Care Code 97840 Post Operative Follow-Up Diagnoses Rotator cuff arthropathy of right shoulder M12.811 S/P shoulder surgery Z98.890
[2021-09-18] MEDS: PANTOprazole 40 MG TAB PO SCH (17:18)
[2021-09-18] MEDS: SENNA 8.6 MG TAB PO SCH (20:44)
[2021-09-18] MEDS: HYDROmorphone INJ 0.5 MG/0.5 ML SYR IV PRN (22:52)
[2021-09-19] MEDS: ACETAMINOPHEN 500 MG TAB PO SCH ×3 (05:23→21:56)
[2021-09-19] MEDS: MULTIVITAMIN TAB PO SCH (07:56)
[2021-09-19] MEDS: ASPIRIN 325 MG ECTAB PO SCH (07:56)
[2021-09-19] MEDS: DOCUSATE SODIUM 100 MG CAP PO SCH ×2 (07:58→20:38)
[2021-09-19] MEDS: oxyCODONE HCL IR 5 MG TAB (IMMEDIATE RELEASE) PO PRN ×3 (08:03→21:56)
[2021-09-19] MEDS: ALUMINUM/MAGNESIUM/SIMETH (MAALOX MAX) 30 ML UDC PO PRN ×2 (15:18→21:56)
[2021-09-19] MEDS: PANTOprazole 40 MG TAB PO SCH (17:54)
--- NOTE | 2021-09-19 19:02 | Orthopedic Progress Note ---
Date of Service September 19, 2021 Assessment & Plan (1) Rotator cuff arthropathy of right shoulder: (2) S/P shoulder surgery: 66-year-old female making uncomplicated progress on postop day 3 after right shoulder hardware removal and reverse total shoulder arthroplasty for rotator cuff arthropathy. Remains inpatient due to ambulatory dysfunction given that she is a right lower extremity amputee and her right arm is nonweightbearing and should be rested in the sling. Required parenteral pain management. -PT/OT: mobilization and assessment of needs for ADLs: Nonweightbearing RUE, gentle passive glenohumeral motion okay with no external rotation past neutral. No restrictions to hand/wrist, elbow range of motion. -Appreciate case management assistance or next level of care -Keep wound covered while inpatient - change prn Dispo: bed availablility at next level of care. Expect pain to be able to be managed with oral meds. Subjective Tolerable pain but required IV dilaudid overnight. Remains concerned about managing ADLs at home - desires rehab. No other issues Review of Systems All systems reviewed & are unremarkable except as noted in HPI & below. Physical Exam RUE: DNVI. Comfortable full ROM elbow, wrist, digits. Dressing taken down to reveal intake wound without active drainage. No erythema. Distal interlock incisions had significant bloody drainage onto dressing but dry. Some blistering at edges of ioban. Constitutional WD/WN, vitals as above no acute distress and not intoxicated appearing Respiratory normal respiratory effort; no labored breathing Cardiovascular Extremities: normal capillary refill Results & Data Results & Data Laboratory Results . Diagnostic Findings . PG Care Time/CCT Total # of Minutes Spent Total Time Spent with Patient: Total time spent is greater than 50% in coordination of care (as documented) at patient's floor/unit and/or counseling patient: Coding Level of Care Code 94637 Post Operative Follow-Up Diagnoses Rotator cuff arthropathy of right shoulder M12.811 S/P shoulder surgery Z98.890
[2021-09-19] MEDS: SENNA 8.6 MG TAB PO SCH (20:38)
[2021-09-20] MEDS: ACETAMINOPHEN 500 MG TAB PO SCH (05:55)
--- NOTE | 2021-09-20 08:15 | Orthopedic Progress Note ---
Date of Service September 20, 2021 Assessment & Plan (1) Rotator cuff arthropathy of right shoulder: (2) S/P shoulder surgery: 66-year-old female making uncomplicated progress on postop day 4 after right shoulder hardware removal and reverse total shoulder arthroplasty for rotator cuff arthropathy. Remains inpatient due to ambulatory dysfunction given that she is a right lower extremity amputee and her right arm is nonweightbearing and should be rested in the sling. -PT/OT: mobilization and assessment of needs for ADLs: Nonweightbearing RUE, gentle passive glenohumeral motion okay with no external rotation past neutral. No restrictions to hand/wrist, elbow range of motion. -Appreciate case management assistance or next level of care -Keep wound covered while inpatient - change daily prn. Dispo: To be discharged to [facility] today. Follow up in clinic at 2 weeks post op for incision check. Subjective Doing well today, managing well with oral oxycodone in last 24 hrs. No other concerns. Review of Systems All systems reviewed & are unremarkable except as noted in HPI & below. Physical Exam RUE: DNVI. Comfortable full ROM elbow, wrist, digits. Tegederm dressings left in place for examination; C/D/I. Constitutional WD/WN, vitals as above no acute distress and not intoxicated appearing Respiratory normal respiratory effort; no labored breathing Cardiovascular Extremities:normal capillary refill . Results & Data Results & Data Laboratory Results None recent . Diagnostic Findings None recent . PG Care Time/CCT Total # of Minutes Spent Total Time Spent with Patient: Total time spent is greater than 50% in coordination of care (as documented) at patient's floor/unit and/or counseling patient: Coding Level of Care Code 56166 Post Operative Follow-Up Diagnoses Rotator cuff arthropathy of right shoulder M12.811 S/P shoulder surgery Z98.890
[2021-09-20] MEDS: oxyCODONE HCL IR 5 MG TAB (IMMEDIATE RELEASE) PO PRN ×2 (08:24→12:23)
[2021-09-20] MEDS: ALUMINUM/MAGNESIUM/SIMETH (MAALOX MAX) 30 ML UDC PO PRN (08:24)
[2021-09-20] MEDS: DOCUSATE SODIUM 100 MG CAP PO SCH (08:26)
[2021-09-20] MEDS: ASPIRIN 325 MG ECTAB PO SCH (08:26)
[2021-09-20] MEDS: MULTIVITAMIN TAB PO SCH (08:26)
--- NOTE | 2021-09-21 09:56 | Discharge Summary ---
Date of Service September 21, 2021 Admission HPI (Per Admitting) CC: Right shoulder rotator cuff arthropathy, preop forright shoulder humeral nail removal and reverse total shoulder arthroplasty. SUBJECTIVE: This is a 66-year-old female who returns as planned to review options for total shoulderarthroplasty. We discussed that her rotator cuff tear was large, retracted and rendering it difficult to repair, but given her age and activity level, she is a goodcandidate for reverse total shoulder arthroplasty. We did note the complicating factors would be a right lower extremity amputee and this will limit her ability to use that upper extremity for some time. She has considered this and wants to proceed with surgery. We had obtained a CT in the interim for patient-specific guides and implantation. Objective:Gen: NAD, appears well, vitals reviewed.HEENT: Atraumatic, no abnormalities.CV: Normal and symmetric peripheral pulses, no significant diffuse extremity edema.Chest: No wheeze, non-labored breathing pattern with symmetric chest excursion.Skin: No significant diffuse rash. Right Shoulder: The overlying incisions are well healed. She has no atrophy. She has full range of motion of the elbow, wrist and digits. She has no atrophy of the deltoid and has 5/5 deltoid strength in all planes. She remains painfulwith impingement maneuvers and noticeable 4/5 abduction and external rotation weakness. She has partial drop arm andpseudoparalysis. IMAGING: Previous x-rays demonstrate intact humeral nail with a well healed proximal humeral shaft fracture. No hardware complications or loosening. Shedoes have mild superior migration of the humeral head. MRI shows further complex degenerative tearing of thesupraspinatus primarily as well as infraspinatus. This is in the setting of previous humeral nail, which leaves a rotator cuff defect. 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 ASSESSMENT: This is a 66-year-old female with rotator cuff arthropathy that has been refractory to nonoperativemanagement for some time now. She is a good candidate for reverse total shoulder arthroplasty to treat therotator cuff arthropathy. PLAN: Today, we reviewed the risks and benefits of surgery as well asthe implicationsfor her rehabilitation. She will be significantly limited and be nonweightbearing to the right upper extremity which she depends on given her being a right lower extremity amputee. She will need some help. Likely this will involve acute rehab or halfway facility postoperatively. For that reason, I do not think she is a good candidate for outpatient total shouldersurgery. I did review that Marko Jiménez iscurrently on pausewith regard to total joint replacements. We will expect to return to some normalcy in the next 2 weeks. We will continue to plan for her surgical date. We will obtain the patient-specific cutting guides for her replacement. We will secure the right materials for her humeral nail removal and we will proceed as planned. We spent time today discussing risks of surgery including but not l imited to infection, neurovascular injury, arthrofibrosis, need for repeat or revision surgeries, implant complications and migration, implant loosening, periprosthetic infections, failure to relieve preoperative pain, need for repeat or revision surgeries, blood clots, and complications related to anesthesia. She asked appropriate questions, demonstrated good anesthesia, and wants to proceed with surgery. Informed consent was documented today. I, Dr. Hugo, personally performed HPI (which includes the [facility]), physical exam, and assessment and plan. I then dictated the entire service. Principal Diagnosis Same as "Discharge Diagnosis" noted below under Discharge Instructions. Discharge Exam RUE: DNVI. Comfortable full ROM elbow, wrist, digits. Tegederm dressings left in place for examination; C/D/I. Constitutional WD/WN, vitals as above no acute distress and not intoxicated appearing Respiratory normal respiratory effort; no labored breathing Cardiovascular Extremities:normal capillary refill . Discharge Data Procedures Performed Operation Date: 09/16/21 10:05 Actual Procedures p Right Humerus Hardware Removal and Reverse Total Shoulder Arthroplasty(Right) - Uday Hugo MD Ordered Studies 09/16/21 05:00 US - OR guided needle placemen Routine 09/16/21 10:05 FL humerus RT 2V Routine Hospital Course (1) S/P shoulder surgery: Admitted post operatively following surgery on 09/16. Remained inpatient for disposition planning, parenteral pain management, and PT/OT evaluations. No post operative complications. Discharged to [facility] on 09/20/2019. PG Care Time/CCT Total # of Minutes Spent Total Time Spent with Patient: Total time spent is greater than 50% in coordination of care (as documented) at patient's floor/unit and/or counseling patient: Discharge Plan Discharge Items Patient Disposition: Transfer Residential Fac Reason For Visit: Rotator Cuff Arthropathy of Right Shoulder Discharge Diagnosis: Right shoulder rotator cuff arthropathy Activity: Resume your previous activity Non-emergency contact: Surgeon Call non-emergency contact if: you have any medication questions, your pain is not controlled and your temperature is above 101 Follow-up/Referrals: Veronica Thomas MD [Primary Care Provider] - Uday Hugo MD [Surgeon] - 09/29/21 11:15 am Diet: Regular Addtl Attending Provider Instructions: [facility]day [facility] M.D. [facility] [address] [place] [address] Dressing Care: Keep the incision covered with a sterile dressing until there is no drainage for 48 hours. If the incision is not draining, you do not have to cover it. If there is a little bit of drainage or if the wound is bothersome with your clothing, cover the incision with a dry dressing. Do not use any ointments or topical medications unless directed by your surgeon. Do not submerse the incisions in water no pools, oceans, lakes, jacuzzis, bathtubs, etc for at least 3 weeks. Showering: Keep the incision dry until you are 7 days out from the day of surgery. After 7 days you may remove the dressing and shower normally. Allow soap and water to run over the incision and pat dry. Do not scrub or soak the incision. Activity and Therapy Recommendations: - Wear your sling for 3 weeks, unless otherwise instructed. You may remove your sling to shower and to dress, but otherwise, you should be in your sling at all times, including while sleeping. After 3 weeks, you may begin to spend more and more time out of the sling, but it should be on anytime you are walking. - The shoulder replacement is very stable and you can use your hand while in the sling - You were shown a series of exercises in the hospital. Do these exercises daily including the exercises you were shown in physical therapy. - NO EXTERNAL ROTATION - do not reach out to your side. Pain Control: Use frequent ice to reduce amount of pain medications. Use for 30 minutes per hour. Do not leave in place longer than 30 minutes, especially when your block is in effect, to prevent frostbite or thermal injury. Medications: - You will likely be sent home from the hospital with a prescription for the narcotic pain medication that worked best throughout your stay. - Other medications may be prescribed for specific circumstances. If you have any questions, please call the office at . - Resume previous home medications unless otherwise instructed Follow-Up: 1. Ortho Clinic with Dr. Hugo: You should be seen in 10-14 days. Please call immediately to schedule if you do not have an appointment. Pending Studies at Discharge: No Stand-Alone Forms: [facility] Skilled Items Patient informed of condition?: Yes DNR: No Discharge Level of Care: Acute rehab Communicable Disease: No Discharge Prognosis: Improving Lines: None Urinary Catheter: No Medications and DC Order Prescriptions: New acetaminophen [Tylenol Extra Strength] 500 mg Tablet 1,000 mg PO Q8 Qty: 100 RF: 0 aspirin [Ecotrin] 325 mg Tablet,Delayed Release (Dr/Ec) 325 mg PO QAM Qty: 30 RF: 0 oxycodone 5 mg Tablet 5 - 10 mg PO Q4H PRN (Reason: pain) Qty: 18 RF: 0 Continued (DME) Right [employer] prosthetic supplies plus socks and liners Qty: 1 RF: 0 cyclobenzaprine 10 mg tablet 10 mg PO HS PRN (Reason: muscle spasm) Qty: 30 RF: 0 esomeprazole magnesium 40 mg capsule,delayed release(DR/EC) 40 mg PO DAILY Qty: 90 RF: 3 Discontinued Andre Aspirin 500 mg Tablet 1,000 mg PO Q8H PRN (Reason: Pain) RF: 0 Discharge Orders: Discharge Order (Routine); Ordered 09/20/21 Ordered By: Nasim Caceres Admission Data Admit Date/Time: 09/16/21 14:33 Attending Provider: Uday Hugo Admit Provider: Uday Hugo Primary Care Provider: Veronica Thomas Other Providers: Ivis Marcus Other Interventions: Discharge Summary Assessment (RN) Last Done: 09/20/21 11:30
== END 2021-09-20 13:14 ==
LOC: ASU 08:28 → INTOOBSV 14:33 → 3W 14:33